=== PATIENT | female | born 1985 | race Caucasian/White ===

== ENCOUNTER 2017-05-26 22:42 | Observation (INO) | payer OTHER ==
[~2017-05-26] VITALS: Ht 152.4 cm; Wt 40.8 kg
[~2017-05-26 22:42] MED LIST: LEVOCETIRIZINE D5 M1 PO; METHADONE10 MG/1 M2 PO; PANTOPRAZOLE SO40 M1 PO
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
[2017-05-26 23:12] LABS: ABSOLUTE BASOPHIL COUNT 0 /CUMM (0.0-0.2); ABSOLUTE EOSINOPHIL COUNT 0 /CUMM (0.0-0.7); ABSOLUTE GRANULOCYTE CT 7.2 /CUMM (1.4-6.5); ABSOLUTE LYMPH COUNT 2.7 /CUMM (1.2-3.4); ABSOLUTE MONOCYTE COUNT 0.7 /CUMM (0.10-0.60); BASOPHIL % 0.3 % (0.0-2.0); EOSINOPHIL % 0.2 % (0-5); GRANULOCYTE % 67.3 % (42.2-75.2); HEMATOCRIT 38.7 % (37-47); MEAN CORPUSCULAR HGB 30.7 PG (27.0-31.0); MEAN PLATELET VOLUME 7.4 FL (7.4-10.4); PLATELET COUNT 344 /CUMM (130-400); RBC DISTRIBUTION WIDTH 13.4 % (11.5-14.5); RED BLOOD CELL CT 4.16 /CUMM (4.20-5.40); WHITE BLOOD CELL COUNT 10.8 /CUMM (4.8-10.8)
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
[2017-05-27 15:40] VITALS: BP 128/66
== END 2017-05-27 16:10 ==
LOC: ERH 22:42 → ERHI 05-27 05:47
PROVIDERS: Emergency Medicine
DX: F32.9 Major depressive disorder, single episode, unspecified (principal); F14.10 Cocaine abuse, uncomplicated; G40.909 Epilepsy, unspecified, not intractable, without status epilepticus; F31.9 Bipolar disorder, unspecified; F17.200 Nicotine dependence, unspecified, uncomplicated; F11.20 Opioid dependence, uncomplicated; R45.851 Suicidal ideations; Z72.89 Other problems related to lifestyle
CPT/HCPCS: 6090; 80307; 81001; 93005; 93010; 96372; G0378; G0463; G0480